=== PATIENT | female | born 1975 | race Two or more races ===

== ENCOUNTER 2017-08-03 18:20 | Inpatient (IN) | payer OTHER ==
--- NOTE | 2017-08-03 18:31 | PDOC ---
Rapid Medical Evaluation Time Seen by Provider: 08/03/17 18:30 Medical Evaluation: Allergies Allergy/AdvReac Type Severity Reaction Status Date / Time No Known Allergies Allergy Verified 11/16/13 08:59 08/03/17 18:30 I have performed a brief in-person evaluation of this patient. The patient presents with a chief complaint of: thrombocytopenia Pertinent physical exam findings: NAD. No rashes. I have ordered the following: labs, urine, CTH, cxr The patient will proceed to the ED for further evaluation. Discharge Disposition - Diagnosis Thrombocytopenia - Referrals - Patient Instructions - Post Discharge Activity
[2017-08-03 19:15] LABS: BASO % 0.7 % (0-2.0); EOS % 2.5 % (0-4.5); HEMATOCRIT 29.7 % (32.4-45.2); HEMOGLOBIN 9.1 GM/dL (10.7-15.3); LYMPH % 34.9 % (8-40); MCH 20.4 pg (25.7-33.7); MCHC 30.6 g/dl (32.0-36.0); MEAN CELL VOLUME 66.7 fl (80-96); MONO % 7.1 % (3.8-10.2); NEUT % 54.8 % (42.8-82.8); RBC 4.45 M/mm3 (3.60-5.2); RDW 18.9 % (11.6-15.6)
[2017-08-03 19:27] LABS: ADD RBC MORPHOLOGY YES
[2017-08-03 19:33] LABS: INR 0.93 (0.82-1.09); PROTHROMBIN TIME (PATIENT) 10.5 SEC (9.7-13.0)
[2017-08-03 19:46] LABS: HCG,QUALITATIVE URINE NEGATIVE
[2017-08-03 19:51] LABS: ANISOCYTOSIS 1+; MEAN PLT VOLUME 11.1 fl (7.5-11.1); OVALOCYTE FEW; PLATELET COUNT 41 K/MM3 (134-434); PLATELET ESTIMATE DECREASED; TARGET CELLS 1+; TEAR DROP CELLS FEW
[2017-08-03 19:52] LABS: URINE APPEARANCE CLEAR; URINE BILIRUBIN NEGATIVE (<2.0 mg/dL); URINE COLOR LTYELLOW; URINE GLUCOSE (UA) NEGATIVE (NEGATIVE); URINE KETONE NEGATIVE (NEGATIVE); URINE LEUK ESTERASE TRACE (NEGATIVE); URINE NITRITE NEGATIVE (NEGATIVE); URINE PROTEIN NEGATIVE (NEGATIVE); URINE UROBILINOGEN NEGATIVE mg/dL (0.2-1.0)
[2017-08-03 19:54] LABS: EPI CELLS RARE /HPF (FEW); URINE BACTERIA RARE /hpf (NONE SEEN); URINE MUCUS RARE
[2017-08-03 20:06] LABS: ALBUMIN 3.5 g/dl (3.4-5.0); ANION GAP 6 (8-16); CALCIUM 8.4 mg/dL (8.5-10.1); CHLORIDE 113 mmol/L (98-107); CO2 25 mmol/L (21-32); CREATININE 0.9 mg/dL (0.55-1.02); GLUCOSE,RANDOM 110 mg/dL (74-106); POTASSIUM 4.1 mmol/L (3.5-5.1); SODIUM 144 mmol/L (136-145); TOT PROT 7.6 g/dl (6.4-8.2)
--- NOTE | 2017-08-03 20:07 | PDOC ---
History of Present Illness - General History Source: Patient Exam Limitations: No Limitations - History of Present Illness Initial Comments: 08/03/17 21:31 The patient is a 41 year old female with past medical history of anemia, referred by PCP to the emergency department s/p abnormal platelet levels. The patient reports going to Dr. River for an annual physical, where she had blood work done that showed her platelet level was 41. The PCP states he was concerned secondary to the patient being an anemic. The patient reports for the past 6 months shes been experiencing abnormal period cycle w/ heavy vaginal bleeding. The PCP did workup w/ results showing 2 cysts. The patient reports following up with Dr. Frazier CLAIM ANALYST, who did a biopsy of the cyst, awaiting results. The patient states a chronic history of cough for the past couple of months, reports going to the several time, who prescribed prednisone, with mild relief. The patient reports going to the to the 7 days ago with ear pain, states she was prescribed amoxicillin.The patient reports associated concerns of generalized fatigue, bilateral ankle swelling, and back pain. The patient reports a similar incident with her son, who recently had blood work done w/ low platelet result and later dx w/ lupus. Denies fever, chills or headache. Denies chest pain or sob. Denies abdominal pain or back pain. Denies nausea or vomiting. Denies diarrhea or constipation. Denies dysuria, hematuria, frequency or urgency to urinate. Denies numbness, tingling or loss of sensation. Allergies: NKDA Social history: None reported Surgical history: None reported PCP: Tash Gonzalez MD CLAIM ANALYST: Dr. Roseann Frazier MD <Stacy Aburto - Last Filed: 08/03/17 21:31> - General History Source: Patient Exam Limitations: No Limitations <Areli Singh - Last Filed: 08/04/17 20:50> - General Chief Complaint: Revisit, Lab Variance Stated Complaint: PCP SENT Time Seen by Provider: 08/03/17 18:30 Past History <Stacy Aburto - Last Filed: 08/03/17 21:31> - Past Medical History Anemia: Yes COPD: No - Immunization History Immunization Up to Date: Yes - Suicide/Smoking/Psychosocial Hx Smoking History: Never smoked Hx Alcohol Use: No Drug/Substance Use Hx: No Substance Use Type: None <Areli Singh - Last Filed: 08/04/17 20:50> - Past Medical History Allergies/Adverse Reactions: Allergies Allergy/AdvReac Type Severity Reaction Status Date / Time No Known Allergies Allergy Verified 08/03/17 18:33 Home Medications: Ambulatory Orders Amoxicillin - [Amoxicillin 875mg Tablet -] 875 mg PO BID 08/03/17 Metformin HCl [Glucophage] 500 mg PO DAILY 08/03/17 Review of Systems - Review of Systems Able to Perform ROS?: Yes Comments:: 08/03/17 21:31 General: No fevers or chills, no weakness, no weight loss HEENT: No change in vision. No sore throat,. No ear pain CardioVascular: No chest pain or shortness of breath Respiratory:No cough, or wheezing. Gastrointestinal: no nausea, vomiting, diarrhea or constipation, No rectal bleeding Genitourinary: No dysuria, hematuria, or frequency Musculoskeletal: No joint or muscle pain or swelling Neurologic: No headache, vertigo, dizziness or loss of consciousness Psychiatric: nor depression Skin: No rashes or easy bruising Endocrine: no increased thirst or abnormal weight change Allergic: no skin or latex allergy All other systems reviewed and normal <Stacy Aburto - Last Filed: 08/03/17 21:31> *Physical Exam - Vital Signs Last Vital Signs Temp Pulse Resp BP Pulse Ox 98.2 F 80 20 133/84 100 08/03/17 18:33 08/03/17 21:03 08/03/17 21:03 08/03/17 21:03 08/03/17 21:03 - Physical Exam Comments: 08/03/17 21:32 GENERAL: The patient is in no acute distress. HEAD: Normal with no signs of trauma. EYES: PERRLA, EOMI, sclera anicteric, conjunctiva clear. ENT: Ears normal, nares patent, oropharynx clear without exudates. Moist mucous membranes. NECK: Normal range of motion, supple without lymphadenopathy, JVD, or masses. LUNGS: Breath sounds equal, clear to auscultation bilaterally. No wheezes, and no crackles. HEART:Regular rate and rhythm, normal S1 and S2 without murmur, rub or gallop. ABDOMEN: Soft, nontender, normoactive bowel sounds. No guarding, no rebound. No masses palpable. EXTREMITIES: Normal range of motion, no edema. No clubbing or cyanosis. No erythema, or tenderness. NEUROLOGICAL: Cranial nerves II through XII grossly intact. Normal speech. No focal neurological deficits. MUSCULOSKELETAL: Back non-tender to palpation, no CVA tenderness SKIN: Warm, Dry, normal turgor, no rashes or lesions noted. <Stacy Aburto - Last Filed: 08/03/17 21:31> - Vital Signs Last Vital Signs Temp Pulse Resp BP Pulse Ox 98.2 F 86 16 122/86 100 08/03/17 18:33 08/03/17 18:33 08/03/17 18:33 08/03/17 18:33 08/03/17 18:33 <Areli Singh - Last Filed: 08/04/17 20:50> ED Treatment Course - LABORATORY CBC & Chemistry Diagram: 08/03/17 18:59 08/03/17 18:59 - ADDITIONAL ORDERS Additional order review: Laboratory Results 08/03/17 08/03/17 08/03/17 19:08 18:59 18:59 PT with INR 10.50 INR 0.93 Sodium 144 Potassium 4.1 Chloride 113 H Carbon Dioxide 25 Anion Gap 6 L BUN 21 H Creatinine 0.9 Creat Clearance w eGFR > 60 Random Glucose 110 H Calcium 8.4 L Total Bilirubin 0.1 L AST 20 ALT 54 Alkaline Phosphatase 68 Total Protein 7.6 Albumin 3.5 Urine Color Ltyellow Urine Appearance Clear Urine pH 5.0 Ur Specific [place] 1.020 Urine Protein Negative Urine Glucose (UA) Negative Urine Ketones Negative Urine Blood 2+ H Urine Nitrite Negative Urine Bilirubin Negative Urine Urobilinogen Negative Ur Leukocyte Esterase Trace Urine WBC (Auto) 4 Urine RBC (Auto) 15 Ur Epithelial Cells Rare Urine Bacteria Rare Urine Mucus Rare Urine HCG, Qual Negative 08/03/17 18:59 RBC 4.45 MCV 66.7 L MCHC 30.6 L RDW 18.9 H MPV 11.1 Neutrophils % 54.8 Lymphocytes % 34.9 Monocytes % 7.1 Eosinophils % 2.5 Basophils % 0.7 <Stacy Aburto - Last Filed: 08/03/17 21:31> - LABORATORY CBC & Chemistry Diagram: 08/04/17 06:30 08/04/17 06:30 - ADDITIONAL ORDERS Additional order review: Laboratory Results 08/03/17 08/03/17 19:08 18:59 PT with INR 10.50 INR 0.93 Urine Color Ltyellow Urine Appearance Clear Urine pH 5.0 Ur Specific [place] 1.020 Urine Protein Negative Urine Glucose (UA) Negative Urine Ketones Negative Urine Blood 2+ H Urine Nitrite Negative Urine Bilirubin Negative Urine Urobilinogen Negative Ur Leukocyte Esterase Trace Urine WBC (Auto) 4 Urine RBC (Auto) 15 Ur Epithelial Cells Rare Urine Bacteria Rare Urine Mucus Rare Urine HCG, Qual Negative 08/03/17 18:59 RBC 4.45 MCV 66.7 L MCHC 30.6 L RDW 18.9 H MPV 11.1 Neutrophils % 54.8 Lymphocytes % 34.9 Monocytes % 7.1 Eosinophils % 2.5 Basophils % 0.7 <Areli Singh - Last Filed: 08/04/17 20:50> Medical Decision Making - Medical Decision Making 08/03/17 20:47 Ms Madden is a 41 yo F who presents to the ER after being called by her PMD Pt was sent to the ER to evaluate thrombocytopenia Pt s/p annual physical, blood tests drawn and reveal thrombocytopenia - platelets Pt notes no spontaneous bleeding, does not that she wakes up in the morning with bruising She has had a headache She does feel weak 08/03/17 21:24 Laboratory Tests 08/03/17 08/03/17 08/03/17 18:59 18:59 18:59 WBC 8.0 Hgb 9.1 L Hct 29.7 L Plt Count 41 L INR 0.93 Sodium 144 Potassium 4.1 Chloride 113 H Carbon Dioxide 25 BUN 21 H Creatinine 0.9 Random Glucose 110 H Urine Blood Ur Leukocyte Esterase Urine WBC (Auto) Urine RBC (Auto) Urine HCG, Qual 08/03/17 19:08 WBC Hgb Hct Plt Count INR Sodium Potassium Chloride Carbon Dioxide BUN Creatinine Random Glucose Urine Blood 2+ H Ur Leukocyte Esterase Trace Urine WBC (Auto) 4 Urine RBC (Auto) 15 Urine HCG, Qual Negative My plan is for discharge Case reviewed with Dr. River He states he would like this patient admitted Case reviewed with Dr Varela Case reviewed with DEREJE Ibarra Will place on observation Clinical impression: thrombocytopenia, initial presentation 08/03/17 21:25 08/04/17 20:46 08/04/17 20:50 <Areli Singh - Last Filed: 08/04/17 20:50> *DC/Admit/Observation/Transfer - Attestations Scribe Attestion: 08/03/17 21:32 Documentation prepared by Stacy Aburto, acting as medical aides teacher for Areli Singh MD. <Stacy Aburto - Last Filed: 08/03/17 21:31> - Discharge Dispostion Decision to Admit order: Yes <Areli Singh - Last Filed: 08/04/17 20:50> Diagnosis at time of Disposition: Thrombocytopenia - Discharge Dispostion Condition at time of disposition: Stable
[2017-08-03 20:31] LABS: ALK PHOS 68 U/L (45-117); BILIRUBIN,TOTAL 0.1 mg/dL (0.2-1.0); BLOOD UREA NITROGEN 21 mg/dL (7-18); SGOT/AST 20 U/L (15-37); SGPT/ALT 54 U/L (12-78)
--- NOTE | 2017-08-03 22:16 | HP ---
CHIEF COMPLAINT: sent by PCP for thrombocytopenia PCP: Perico HISTORY OF PRESENT ILLNESS: This is a 41 year old female with a past medical history of PCOS who presented to the ED with thrombocytopenia. She was sent by her PCP for a platelet count in 30s. She recently went to him becuase she wasn't feeling well (URI/cough/ allergy symptoms) after being treated by urgent care 3 weeks ago for the same. She was started on prednisone and antibiotics by urgent care but reports they didn't help. She then went to her PCP for follow up. He started her on amoxicillin and repeated lab work as her platelet count was low on her annual physical in May. He referred her to the ED when her platelet count was noted low. 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 She had a uterine biopsy but has not received the results yet. She was found to have ovarian cysts and started on metformin. She also reports headaches recently. Of note, she reports her son was recently diagnosed with lupus after being found to have low platelet count on routine labs. ER course was notable for: (1) H/H 9.1/29.7 (2) Plt 41 (3) CT head unremarkable Recent Travel: pt denies PAST MEDICAL HISTORY: polycystic ovarian syndrome, heavy menstrual bleeding x 6 months PAST SURGICAL HISTORY: gastric sleeve 12/2012 Social History: Smoking: pt denies Alcohol: occ Drugs: pt denies Family History: mother , [place] age 74, h/o DM father CVA, age 44, h/o HTN son with lupus siblings with DM/HTN Allergies No Known Allergies Allergy (Verified 08/03/17 18:33) HOME MEDICATIONS: 3 Medication Instructions Recorded Amoxicillin - [Amoxicillin 875mg 875 mg PO BID 08/03/17 Tablet -] Metformin HCl [Glucophage] 500 mg PO DAILY 08/03/17 REVIEW OF SYSTEMS CONSTITUTIONAL: Present: generalized weakness, malaise, Absent: fever, chills, diaphoresis, loss of appetite, weight change HEENT: Absent: rhinorrhea, nasal congestion, throat pain, throat swelling, difficulty swallowing, mouth swelling, ear pain, eye pain, visual changes CARDIOVASCULAR: Present: occasional peripheral edema Absent: chest pain, syncope, palpitations, irregular heart rate, lightheadedness RESPIRATORY: Present: cough, shortness of breath Absent: dyspnea with exertion, orthopnea, wheezing, stridor, hemoptysis GASTROINTESTINAL: Absent: abdominal pain, abdominal distension, nausea, vomiting, diarrhea, constipation, melena, hematochezia GENITOURINARY: Present: heavy menstrual bleeding Absent: dysuria, frequency, urgency, hesitancy, hematuria, flank pain, genital pain MUSCULOSKELETAL: Absent: myalgia, arthralgia, joint swelling, back pain, neck pain SKIN: Absent: rash, itching, pallor HEMATOLOGIC/IMMUNOLOGIC: Present: easy bruising Absent: easy bleeding, lymphadenopathy, frequent infections ENDOCRINE: Absent: unexplained weight gain, unexplained weight loss, heat intolerance, cold intolerance NEUROLOGIC: Absent: headache, focal weakness or paresthesias, dizziness, unsteady gait, seizure, mental status changes, bladder or bowel incontinence PSYCHIATRIC: Absent: anxiety, depression, suicidal or homicidal ideation, hallucinations. PHYSICAL EXAMINATION Vital Signs - 24 hr 3 08/03/17 08/03/17 08/03/17 18:33 20:53 21:03 Temperature 98.2 F Pulse Rate 86 Pulse Rate [ 80 Left Radial] Respiratory 16 20 Rate Blood Pressure 122/86 Blood Pressure 133/84 [Left Arm] O2 Sat by Pulse 100 98 100 Oximetry (%) GENERAL: Awake, alert, and fully oriented, in no acute distress. HEAD: Normal with no signs of trauma. EYES: Pupils equal, round and reactive to light, extraocular movements intact, sclera anicteric, conjunctiva clear. No lid lag. EARS, NOSE, THROAT: Ears normal, nares patent, oropharynx clear without exudates. Moist mucous membranes. NECK: Normal range of motion, supple without lymphadenopathy, JVD, or masses. LUNGS: Breath sounds equal, clear to auscultation bilaterally. No wheezes, and no crackles. No accessory muscle use. HEART: Regular rate and rhythm, normal S1 and S2 without murmur, rub or gallop. ABDOMEN: Soft, nontender, not distended, normoactive bowel sounds, no guarding, no rebound, no masses. No hepatomegaly or splenomegaly. MUSCULOSKELETAL: Normal range of motion at all joints. No bony deformities or tenderness. No CVA tenderness. UPPER EXTREMITIES: 2+ pulses, warm, well-perfused. No cyanosis. No clubbing. No peripheral edema. LOWER EXTREMITIES: 2+ pulses, warm, well-perfused. No calf tenderness. No peripheral edema. NEUROLOGICAL: Cranial nerves II-XII intact. Normal speech. Normal gait. PSYCHIATRIC: Cooperative. Good eye contact. Appropriate mood and affect. SKIN: Warm, dry, normal turgor, no rashes or lesions noted, normal capillary refill. Laboratory Results - last 24 hr 3 08/03/17 08/03/17 08/03/17 18:59 18:59 18:59 WBC 8.0 RBC 4.45 Hgb 9.1 L Hct 29.7 L MCV 66.7 L MCH 20.4 L MCHC 30.6 L RDW 18.9 H Plt Count 41 L MPV 11.1 Absolute Neuts (auto) 4.4 Neutrophils % 54.8 Lymphocytes % 34.9 Monocytes % 7.1 Eosinophils % 2.5 Basophils % 0.7 Nucleated RBC % 0 Hypochromia 3+ Platelet Estimate Decreased Platelet Comment No clumping noted Polychromasia 1+ Anisocytosis 1+ Microcytosis 1+ Target Cells 1+ Tear Drop Cells Few Ovalocytes Few PT with INR 10.50 INR 0.93 Sodium 144 Potassium 4.1 Chloride 113 H Carbon Dioxide 25 Anion Gap 6 L BUN 21 H Creatinine 0.9 Creat Clearance w eGFR > 60 Random Glucose 110 H Calcium 8.4 L Total Bilirubin 0.1 L AST 20 ALT 54 Alkaline Phosphatase 68 Total Protein 7.6 Albumin 3.5 Urine Color Urine Appearance Urine pH Ur Specific [place] Urine Protein Urine Glucose (UA) Urine Ketones Urine Blood Urine Nitrite Urine Bilirubin Urine Urobilinogen Ur Leukocyte Esterase Urine WBC (Auto) Urine RBC (Auto) Ur Epithelial Cells Urine Bacteria Urine Mucus Urine HCG, Qual 3 Urine Color Ltyellow 08/03/17 19:08 Urine Appearance Clear 08/03/17 19:08 Urine pH 5.0 (5.0-8.0) 08/03/17 19:08 Ur Specific [place] 1.020 (1.001-1.035) 08/03/17 19:08 Urine Protein Negative (NEGATIVE) 08/03/17 19:08 Urine Glucose (UA) Negative (NEGATIVE) 08/03/17 19:08 Urine Ketones Negative (NEGATIVE) 08/03/17 19:08 Urine Blood 2+ (NEGATIVE) H 08/03/17 19:08 Urine Nitrite Negative (NEGATIVE) 08/03/17 19:08 Urine Bilirubin Negative (<2.0 mg/dL) 08/03/17 19:08 Ur Leukocyte Esterase Trace (NEGATIVE) 08/03/17 19:08 Urine WBC (Auto) 4 08/03/17 19:08 Urine RBC (Auto) 15 08/03/17 19:08 Ur Epithelial Cells Rare /HPF (FEW) 08/03/17 19:08 Urine Bacteria Rare /hpf (NONE SEEN) 08/03/17 19:08 Urine Mucus Rare 08/03/17 19:08 Urine HCG, Qual Negative 08/03/17 19:[address] Impression: No CT evidence of acute intracranial pathology. There has been no definite interval change in comparison to a prior CT exam of 01/30/2005. Reported By: Nathan Tyson MD 08/03/172022 Chest PA/Lat Impression: No acute chest pathology. No comparison studies. Reported By: Ted Chávez MD 08/03/172106 ASSESSMENT/PLAN: 41yF with PMH PCOS, heavy menstrual bleeding presented to the ED with thrombocytopenia. Thrombocytopenia - given son with thrombocytopenia and recent dx of lupus will initiate lupus workup: VILMA, antiphospholipid panel ordered - hematology consult - monitor for bleed and transfuse if any bleeding anemia - likely CASEY due to heavy menses - Iron/TIBC ordered - folate and B12 ordered but doubtful will be abnormal DVT PPX - heparin deferred due to platelet count and expected LOS < 48h FEN - tolerating po - bmp in am - Regular diet as tolerated. Dispo: pt currently requires further observation. Visit type - Emergency Visit Emergency Visit: Yes ED Registration Date: 08/03/17 Care time: The patient presented to the Emergency Department on the above date and was hospitalized for further evaluation of their emergent condition. - New Patient This patient is new to me today: Yes Date on this admission: 08/03/17 - Critical Care Critical Care patient: No Hospitalist Screening - Colonoscopy Questionnaire Colonoscopy Questionnaire: Colonoscopy Questionnaire - Patient: 50 - 75 years old and never had a screening colonoscopy: No History of colon or rectal polyps, or CA: No History of IBD, Crohn's disease or UC: No History of abdominal radiation therapy as a child: No - Relative: 1 with colon or rectal CA, or polyps at age 60 or younger: No Colon or rectal CA diagnosed at age 45 or younger: No Multiple relatives with colon or rectal CA: No - Outcome: Screening Result: Negative Screen
[2017-08-04 00:06] VITALS: BMI 38.5
[2017-08-04 08:28] LABS: BASO % 0.4 % (0-2.0); EOS % 2.9 % (0-4.5); HEMATOCRIT 29.5 % (32.4-45.2); HEMOGLOBIN 9.1 GM/dL (10.7-15.3); LYMPH % 31.3 % (8-40); MCH 20.3 pg (25.7-33.7); MCHC 30.7 g/dl (32.0-36.0); MEAN CELL VOLUME 66.2 fl (80-96); MEAN PLT VOLUME 11.1 fl (7.5-11.1); MONO % 7.6 % (3.8-10.2); NEUT % 57.8 % (42.8-82.8); RBC 4.46 M/mm3 (3.60-5.2); RDW 18.9 % (11.6-15.6); WHITE BLOOD COUNT 6.8 K/mm3 (4.0-10.0)
[2017-08-04 08:45] LABS: BLOOD UREA NITROGEN 16 mg/dL (7-18); CHLORIDE 112 mmol/L (98-107); GLUCOSE,RANDOM 78 mg/dL (74-106); POTASSIUM 3.7 mmol/L (3.5-5.1); SODIUM 143 mmol/L (136-145)
[2017-08-04 08:46] LABS: PLATELET COUNT 28 K/MM3 (134-434)
[2017-08-04 09:16] LABS: ANION GAP 6 (8-16); CALCIUM 8.2 mg/dL (8.5-10.1); CO2 25 mmol/L (21-32); CREATININE 0.7 mg/dL (0.55-1.02); PHOSPHOROUS 3.2 mg/dL (2.5-4.9)
[2017-08-04] MEDS ORDERED: ACETAMINOPHEN 325 MG TABLET (FP) ONE (10:27)
[2017-08-04] MEDS: ACETAMINOPHEN 325 MG TABLET (FP) PO PRN (10:29)
--- NOTE | 2017-08-04 11:04 | PN ---
Progress Note, Physician Chief Complaint: weakness/wheezes notes reviewed C/O HEADACHE - Current Medication List Current Medications: Active Medications Acetaminophen (Tylenol -) 650 mg PO Q6H PRN PRN Reason: PAIN SCALE 7-10 Last Admin: 08/04/17 10:29 Dose: 650 mg - Objective Vital Signs: Vital Signs Temperature 98.3 F 08/04/17 06:27 Pulse Rate 76 08/04/17 06:27 Respiratory Rate 20 08/04/17 06:27 Blood Pressure 141/95 08/04/17 06:27 O2 Sat by Pulse Oximetry (%) 100 08/03/17 23:00 Constitutional: Yes: Mild Distress Eyes: Yes: WNL HENT: Yes: Nasal Congestion Neck: Yes: WNL Cardiovascular: Yes: WNL Respiratory: Yes: WNL Gastrointestinal: Yes: WNL Genitourinary: Yes: WNL Musculoskeletal: Yes: Muscle Weakness Extremities: Yes: WNL Edema: No Peripheral Pulses WNL: Yes Integumentary: Yes: WNL Wound/Incision: Yes: Clean/Dry Neurological: Yes: WNL ...Motor Strength: WNL Psychiatric: Yes: WNL Labs: CBC, BMP 08/04/17 06:30 08/04/17 06:30 INR, PTT INR 0.93 (0.82-1.09) 08/03/17 18:59 Problem List - Problems (1) Weakness Code(s): R53.1 - WEAKNESS (2) Thrombocytopenia Code(s): D69.6 - THROMBOCYTOPENIA, UNSPECIFIED (3) Pharyngitis Code(s): J02.9 - ACUTE PHARYNGITIS, UNSPECIFIED Assessment/Plan THROMBOCYTOPENIA IS WORSE TODAY HEME/ONC WORKUP IN PROGRESS DUO - SKIP AND NASAL SPRAYS FOR RHINITIS/SINUSITIS OOB TO CHAIR NO HEPARIN SQ BECAUSE PLATLETS ARE LOW
[2017-08-04] MEDS: LORATADINE 10 MG TABLET PO SCH (12:05)
[2017-08-04] MEDS: SODIUM CHLORIDE NASAL SPRAY 44 ML BOTTLE NS PRN (12:05)
[2017-08-04] MEDS: FLUTICASONE PROP 0.05% 16 GM NASAL SPRAY NS SCH ×2 (12:06→21:51)
[2017-08-04] MEDS ORDERED: PT OWN MED DRAWER 7, Y5N ONE ×2 (13:23→21:47)
[2017-08-04 16:15] LABS: URIC ACID 3.2 mg/dL (2.6-7.2)
--- NOTE | 2017-08-04 17:07 | CONSULT ---
Consult Consult Specialty:: Hematology - History of Present Illness History of Present Illness: 11 year old female with a past medical history of PCOS who presented to the ED with thrombocytopenia. She was sent by her PCP for a platelet count in 30s. She recently went to him becuase she wasn't feeling well (URI/cough/allergy symptoms ) after being treated by urgent care 3 weeks ago for the same. She was started on prednisone and antibiotics by urgent care but reports they didn't help. She then went to her PCP for follow up. He started her on amoxicillin and repeated lab work as her platelet count was low on her annual physical in May. He referred her to the ED when her platelet count was noted low. Pt also reports she is currently undergoing workup with her P[employer] for heavy menses x 6 months. She had a uterine biopsy but has not received the results yet. She was found to have ovarian cysts and started on metformin. She also reports headaches recently. Of note, she reports her son was recently diagnosed with lupus after being found to have low platelet count on routine labs. - History Source History Provided By: Patient, Medical Record - Past Medical History ...LMP: 07/19/17 ...: No - Alcohol/Substance Use Hx Alcohol Use: Yes (occasional) - Smoking History Smoking history: Never smoked Have you smoked in the past 12 months: No Home Medications - Allergies Allergies/Adverse Reactions: Allergies Allergy/AdvReac Type Severity Reaction Status Date / Time No Known Allergies Allergy Verified 08/03/17 18:33 - Home Medications Home Medications: Ambulatory Orders Amoxicillin - [Amoxicillin 875mg Tablet -] 875 mg PO BID 08/03/17 Metformin HCl [Glucophage] 500 mg PO DAILY 08/03/17 Physical Exam Vital Signs: Vital Signs Temperature 98.9 F 08/04/17 15:43 Pulse Rate 71 08/04/17 15:43 Respiratory Rate 18 08/04/17 15:43 Blood Pressure 119/74 08/04/17 15:43 O2 Sat by Pulse Oximetry (%) 100 08/03/17 23:00 Constitutional: Yes: Anxious Eyes: Yes: Conjunctiva Clear HENT: Yes: Atraumatic, Normocephalic Neck: Yes: Supple, Trachea Midline Cardiovascular: Yes: Regular Rate and Rhythm Respiratory: Yes: Regular, CTA Bilaterally Gastrointestinal: Yes: Normal Bowel Sounds, Soft Musculoskeletal: Yes: WNL Edema: No Integumentary: Yes: Other (petechiae seen) Neurological: Yes: Alert, Oriented Psychiatric: Yes: Alert, Oriented Labs: CBC, BMP 08/04/17 06:30 08/04/17 06:30 Assessment/Plan Anemia and Thrombocytopenia etiology - different or the same for both the cell line decline pt endorses heavy vaginal bleeding---?cause of anemia-- check routine anemia w/u --Iron studies, TSH, [place],LDH, retic, Hapto Normal B12/folate. Thrombocytopenia: ?meds(recent PCN usage), ?Recovering from recent resp illness as per her---check blood cultures vs idiopathic , order hep serologies. r/o Lupus will also send FLOW/FISH of the peripheral and CT c/a/p to rule out underlying primary hematological disorders/assess spleen/liver. Unlikely pseudo thrombocytopenia, but as pt requested, will repeat Platelets in blue top tube. If any evidence of bleeding-- will transfuse platelets or if <20K. Fall/Bleeding risk.
[2017-08-04] MEDS: ALBUTEROL SO4 2.5/IPRATROPIUM 0.5 INH SOL 3 ML VIAL.NEB. NEB PRN (17:41)
[2017-08-05 06:37] LABS: SERUM IRON SATURATION 6 % (15-55); TOTAL IRON BINDING CAPACITY 396 ug/dL (250-450); UIBC 374 ug/dL (131-425)
[2017-08-05] MEDS ORDERED: PT OWN MED DRAWER 7, Y5N ONE (09:13)
[2017-08-05] MEDS ORDERED: MAGNESIUM HYDROX 2400MG/30ML ORAL SUSPENSION 30 ML CUP PO ONE (09:18)
--- NOTE | 2017-08-05 09:20 | PN ---
Progress Note, Physician Chief Complaint: AWAKE ALERT FEELING BETTER C/O CONSTIPATION - Current Medication List Current Medications: Active Medications Acetaminophen (Tylenol -) 650 mg PO Q6H PRN PRN Reason: PAIN SCALE 7-10 Last Admin: 08/04/17 10:29 Dose: 650 mg Albuterol/Ipratropium (Duoneb -) 1 amp NEB Q6H PRN PRN Reason: SHORTNESS OF BREATH Last Admin: 08/04/17 17:41 Dose: 1 amp Fluticasone Propionate (Flonase -) 1 spray NS BID CHUCHO Last Admin: 08/04/17 21:51 Dose: 1 spray Loratadine (Claritin -) 10 mg PO DAILY CHUCHO Last Admin: 08/04/17 12:05 Dose: 10 mg Magnesium Hydroxide (Milk Of Magnesia -) 30 ml PO ONCE ONE Stop: 08/05/17 09:19 Senna (Senna -) 1 tab PO BID CHUCHO Sodium Chloride ([place] Nasal [place] -) 2 spray NS TID PRN PRN Reason: NASAL CONGESTION Last Admin: 08/04/17 12:05 Dose: 2 spray - Objective Vital Signs: Vital Signs Temperature 98.6 F 08/05/17 06:24 Pulse Rate 87 08/05/17 06:24 Respiratory Rate 18 08/05/17 06:24 Blood Pressure 102/66 08/05/17 06:24 O2 Sat by Pulse Oximetry (%) 98 08/04/17 21:00 Constitutional: Yes: No Distress Eyes: Yes: WNL HENT: Yes: WNL Neck: Yes: WNL Cardiovascular: Yes: WNL Respiratory: Yes: WNL Gastrointestinal: Yes: WNL Genitourinary: Yes: WNL Musculoskeletal: Yes: WNL Extremities: Yes: WNL Edema: No Peripheral Pulses WNL: Yes Integumentary: Yes: WNL Wound/Incision: Yes: Clean/Dry Neurological: Yes: WNL ...Motor Strength: WNL Psychiatric: Yes: WNL Labs: CBC, BMP 08/04/17 06:30 08/04/17 06:30 INR, PTT INR 0.93 (0.82-1.09) 08/03/17 18:59 Problem List - Problems (1) Weakness Code(s): R53.1 - WEAKNESS (2) Thrombocytopenia Code(s): D69.6 - THROMBOCYTOPENIA, UNSPECIFIED (3) Pharyngitis Code(s): J02.9 - ACUTE PHARYNGITIS, UNSPECIFIED Assessment/Plan AWAITING LABS FALL RISKS AND BLEEDING RISKS D/W PATIENT HEME WORKUP IN PROGRESS POSSIBLE DC WHEN CLEARED BY HEME
[2017-08-05] MEDS: FLUTICASONE PROP 0.05% 16 GM NASAL SPRAY NS SCH ×2 (09:30→22:07)
[2017-08-05] MEDS: SENNOSIDES 8.6MG TABLET (FP) PO SCH ×2 (09:30→22:07)
[2017-08-05] MEDS: LORATADINE 10 MG TABLET PO SCH (09:30)
[2017-08-05] MEDS ORDERED: IRON SUCROSE INJECTION 200 MG in SODIUM CHLORIDE 240 ML IVPB ONE (09:46)
--- NOTE | 2017-08-05 10:50 | PN ---
Progress Note (short form) - Note Progress Note: seen and examined not chnaged from yesterday Constitutional: Yes: Anxious Eyes: Yes: Conjunctiva Clear HENT: Yes: Atraumatic, Normocephalic Neck: Yes: Supple, Trachea Midline Cardiovascular: Yes: Regular Rate and Rhythm Respiratory: Yes: Regular, CTA Bilaterally Gastrointestinal: Yes: Normal Bowel Sounds, Soft Musculoskeletal: Yes: WNL Edema: No Integumentary: Yes: Other (petechiae seen) Neurological: Yes: Alert, Oriented Psychiatric: Yes: Alert, Oriented Temp Pulse Resp BP Pulse Ox 98.6 F 87 18 102/66 98 08/05/17 06:24 08/05/17 06:24 08/05/17 06:24 08/05/17 06:24 08/04/17 21:00 CBC, BMP 08/04/17 06:30 08/04/17 06:30 Current Medications Generic Name Dose Route Start Last Admin Trade Name Freq PRN Reason Stop Dose Admin Acetaminophen 650 mg 08/04/17 10:27 08/04/17 10:29 Tylenol - PO 650 mg Q6H PRN Administration PAIN SCALE 7-10 Albuterol/Ipratropium 1 amp 08/04/17 11:01 08/04/17 17:41 Duoneb - NEB 1 amp Q6H PRN Administration SHORTNESS OF BREATH Fluticasone Propionate 1 spray 08/04/17 11:15 08/05/17 09:30 Flonase - NS 1 spray BID CHUCHO Administration Loratadine 10 mg 08/04/17 11:15 08/05/17 09:30 Claritin - PO 10 mg DAILY CHUCHO Administration Senna 1 tab 08/05/17 10:00 08/05/17 09:30 Senna - PO 1 tab BID CHUCHO Administration Sodium Chloride 2 spray 08/04/17 11:01 08/04/17 12:05 [place] Nasal [place] - NS 2 spray TID PRN Administration NASAL CONGESTION await w/u CT scan pending give venofer ( low iron sat). Platelets remain <50K for safe d.c and etiology not known yet. pt aware
[2017-08-05] MEDS: ACETAMINOPHEN 325 MG TABLET (FP) PO PRN (18:06)
[2017-08-05] MEDS: ALBUTEROL SO4 2.5/IPRATROPIUM 0.5 INH SOL 3 ML VIAL.NEB. NEB PRN (18:17)
[2017-08-06] MEDS: ALBUTEROL SO4 2.5/IPRATROPIUM 0.5 INH SOL 3 ML VIAL.NEB. NEB PRN (07:31)
[2017-08-06 08:10] LABS: HEMATOCRIT 29.5 % (32.4-45.2); HEMOGLOBIN 9.1 GM/dL (10.7-15.3); MCH 20.4 pg (25.7-33.7); MCHC 30.7 g/dl (32.0-36.0); MEAN CELL VOLUME 66.3 fl (80-96); MEAN PLT VOLUME 10.8 fl (7.5-11.1); RBC 4.45 M/mm3 (3.60-5.2); RDW 19.4 % (11.6-15.6); WHITE BLOOD COUNT 6.5 K/mm3 (4.0-10.0)
[2017-08-06] MEDS ORDERED: PT OWN MED DRAWER 7, Y5N ONE ×2 (09:24→22:48)
[2017-08-06] MEDS: FLUTICASONE PROP 0.05% 16 GM NASAL SPRAY NS SCH ×2 (09:26→23:01)
[2017-08-06] MEDS: SENNOSIDES 8.6MG TABLET (FP) PO SCH ×2 (09:26→23:00)
[2017-08-06] MEDS: LORATADINE 10 MG TABLET PO SCH (09:26)
[2017-08-06 10:02] LABS: PLATELET COUNT 28 K/MM3 (134-434)
--- NOTE | 2017-08-06 11:21 | DS ---
Physical Examination Vital Signs: Vital Signs Temperature 99.2 F 08/06/17 08:30 Pulse Rate 81 08/06/17 08:30 Respiratory Rate 20 08/06/17 08:30 Blood Pressure 113/67 08/06/17 08:30 O2 Sat by Pulse Oximetry (%) 98 08/05/17 21:00 Constitutional: Yes: Calm Cardiovascular: Yes: Regular Rate and Rhythm, S1, S2 Respiratory: Yes: CTA Bilaterally Gastrointestinal: Yes: Normal Bowel Sounds, Soft Edema: No Neurological: Yes: Alert, Oriented Labs: CBC, BMP 08/06/17 07:30 08/04/17 06:30 Discharge Summary Reason For Visit: THROMBOCYTOPENIA Current Active Problems Thrombocytopenia (Acute) Weakness (Acute) Hospital Course: CHIEF COMPLAINT: sent by PCP for thrombocytopenia PCP: Perico HISTORY OF PRESENT ILLNESS: This is a 41 year old female with a past medical history of PCOS who presented to the ED with thrombocytopenia. She was sent by her PCP for a platelet count in 30s. She recently went to him becuase she wasn't feeling well (URI/cough/ allergy symptoms) after being treated by urgent care 3 weeks ago for the same. She was started on prednisone and antibiotics by urgent care but reports they didn't help. She then went to her PCP for follow up. He started her on amoxicillin and repeated lab work as her platelet count was low on her annual physical in May. He referred her to the ED when her platelet count was noted low. 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 She had a uterine biopsy but has not received the results yet. She was found to have ovarian cysts and started on metformin. She also reports headaches recently. Of note, she reports her son was recently diagnosed with lupus after being found to have low platelet count on routine labs. ER course was notable for: (1) H/H 9.1/29.7 (2) Plt 41 (3) CT head unremarkable patient seen by heme CT scan of chest and abdomen done got iv venofer for low iron saturation Condition: Stable - Instructions Referrals: Tash River MD [Primary Care Provider] - 1 Week Lila Garner MD [Staff Physician] - 2 Weeks Disposition: HOME - Home Medications Comprehensive Discharge Medication List: Ambulatory Orders Amoxicillin - [Amoxicillin 875mg Tablet -] 875 mg PO BID 08/03/17 Metformin HCl [Glucophage] 500 mg PO DAILY 08/03/17
[2017-08-06] MEDS: ACETAMINOPHEN 325 MG TABLET (FP) PO PRN (17:22)
--- NOTE | 2017-08-06 19:11 | PN ---
Progress Note (short form) - Note Progress Note: Patient seen and examined feels well. no complaints Last Vital Signs Temp Pulse Resp BP Pulse Ox 98.2 F 86 18 124/80 98 08/06/17 17:46 08/06/17 17:46 08/06/17 17:46 08/06/17 17:46 08/05/17 21:00 Cor: RSR, No murmurs, No gallops Lungs: Clear to P&A Abd: Soft, Normal bowel sounds, No organomegaly Ext:No significant edema Abnormal Lab Results 08/05/17 08/06/17 08:05 07:30 Hgb 9.1 L Hct 29.5 L MCV 66.3 L MCH 20.4 L MCHC 30.7 L RDW 19.4 H Plt Count 28 L* Hep Bs Antibody, Quant 9.2 L Active Medications Generic Name Dose Route Start Last Admin Trade Name Freq PRN Reason Stop Dose Admin Acetaminophen 650 mg 08/04/17 10:27 08/06/17 17:22 Tylenol - PO 650 mg Q6H PRN Administration PAIN SCALE 7-10 Albuterol/Ipratropium 1 amp 08/04/17 11:01 08/06/17 07:31 Duoneb - NEB 1 amp Q6H PRN Administration SHORTNESS OF BREATH Fluticasone Propionate 1 spray 08/04/17 11:15 08/06/17 09:26 Flonase - NS 1 spray BID CHUCHO Administration Loratadine 10 mg 08/04/17 11:15 08/06/17 09:26 Claritin - PO 10 mg DAILY CHUCHO Administration Senna 1 tab 08/05/17 10:00 08/06/17 09:26 Senna - PO 1 tab BID CHUCHO Administration Sodium Chloride 2 spray 08/04/17 11:01 08/04/17 12:05 [place] Nasal [place] - NS 2 spray TID PRN Administration NASAL CONGESTION A/P 41 y/o patient with Anemia and Thrombocytopenia Iron deficiency anemia--Microcytic + ferritin is 3 . 200mg venofer 08/05. Redose tomorrow Due to menorrhagia from low platelets, fibroids s/p D an C --pathology is pending CT c/a/p-- right adnexal cyst/ fibroid uterus will need PAINTER BARREL follow up Thrombocytopenia: VILMA negative. check HIV/Hep. C. LDH--nl ITP will check flowcytometry Since patient is having menorrhagia --will treat for platelets < 50,000 start dexamethasone 40mg daily x 4days + protonix to f/u flowcytometry
[2017-08-06] MEDS: PANTOPRAZOLE 40 MG TABLET (FP) PO SCH (20:30)
[2017-08-06] MEDS: DEXAMETHASONE 4 MG TABLET (FP) PO SCH (20:59)
[2017-08-07 07:11] LABS: BASO % 0.4 % (0-2.0); EOS % 0.1 % (0-4.5); HEMATOCRIT 31.3 % (32.4-45.2); HEMOGLOBIN 9.6 GM/dL (10.7-15.3); LYMPH % 14.5 % (8-40); MCH 20.4 pg (25.7-33.7); MCHC 30.7 g/dl (32.0-36.0); MEAN CELL VOLUME 66.5 fl (80-96); MEAN PLT VOLUME 8.8 fl (7.5-11.1); MONO % 0.9 % (3.8-10.2); NEUT % 84.1 % (42.8-82.8); RDW 19.1 % (11.6-15.6); WHITE BLOOD COUNT 8.7 K/mm3 (4.0-10.0)
[2017-08-07 07:27] LABS: ALBUMIN 3.5 g/dl (3.4-5.0); BLOOD UREA NITROGEN 14 mg/dL (7-18); CHLORIDE 110 mmol/L (98-107); POTASSIUM 4.2 mmol/L (3.5-5.1); SGOT/AST 16 U/L (15-37); SODIUM 140 mmol/L (136-145)
[2017-08-07 07:30] LABS: ALK PHOS 68 U/L (45-117); ANION GAP 6 (8-16); BILIRUBIN,TOTAL 0.2 mg/dL (0.2-1.0); CALCIUM 9.1 mg/dL (8.5-10.1); CO2 24 mmol/L (21-32); CREATININE 0.8 mg/dL (0.55-1.02); GLUCOSE,RANDOM 151 mg/dL (74-106); PLATELET COUNT 30 K/MM3 (134-434); SGPT/ALT 39 U/L (12-78); TOT PROT 7.8 g/dl (6.4-8.2)
--- NOTE | 2017-08-07 09:11 | PN ---
Progress Note, Physician Chief Complaint: Thrombocytopenia History of Present Illness: NAD sitting in bed seen by Hematology today Plt improved Started on Dexamethasone - Current Medication List Current Medications: Active Medications Acetaminophen (Tylenol -) 650 mg PO Q6H PRN PRN Reason: PAIN SCALE 7-10 Last Admin: 08/06/17 17:22 Dose: 650 mg Albuterol/Ipratropium (Duoneb -) 1 amp NEB Q6H PRN PRN Reason: SHORTNESS OF BREATH Last Admin: 08/06/17 07:31 Dose: 1 amp Dexamethasone (Decadron -) 40 mg PO DAILY@1800 CHUCHO Stop: 08/09/17 18:01 Last Admin: 08/06/17 20:59 Dose: 40 mg Fluticasone Propionate (Flonase -) 1 spray NS BID [facility] Last Admin: 08/06/17 23:01 Dose: 1 spray Iron Sucrose 200 mg/ Sodium (Chloride) 100 mls @ 200 mls/hr IVPB ONCE ONE Stop: 08/07/17 10:29 Loratadine (Claritin -) 10 mg PO DAILY [facility] Last Admin: 08/06/17 09:26 Dose: 10 mg Pantoprazole Sodium (Protonix -) 40 mg PO DAILY [facility] Last Admin: 08/06/17 20:30 Dose: 40 mg Senna (Senna -) 1 tab PO BID [facility] Last Admin: 08/06/17 23:00 Dose: 1 tab Sodium Chloride ([place] Nasal [place] -) 2 spray NS TID PRN PRN Reason: NASAL CONGESTION Last Admin: 08/04/17 12:05 Dose: 2 spray - Objective Vital Signs: Vital Signs Temperature 98.1 F 08/07/17 06:00 Pulse Rate 79 08/07/17 06:00 Respiratory Rate 20 08/07/17 06:00 Blood Pressure 108/73 08/07/17 06:00 O2 Sat by Pulse Oximetry (%) 97 08/06/17 21:00 Constitutional: Yes: Well Nourished, No Distress, Calm Cardiovascular: Yes: Regular Rate and Rhythm Respiratory: Yes: Regular Gastrointestinal: Yes: Normal Bowel Sounds, Soft Neurological: Yes: Alert, Oriented Psychiatric: Yes: Alert, Oriented Labs: CBC, BMP 08/07/17 06:15 08/07/17 06:15 INR, PTT INR 0.93 (0.82-1.09) 08/03/17 18:59 Problem List - Problems (1) Thrombocytopenia Assessment/Plan: -improved -seen by Hematology Started on Dexamethasone 40 mg po daily Code(s): D69.6 - THROMBOCYTOPENIA, UNSPECIFIED (2) Anemia Assessment/Plan: -chronic -Venofer -hemotology on board -Stool OB -monitor trend Code(s): D64.9 - ANEMIA, UNSPECIFIED Assessment/Plan see problem list self ambulatory Pharmacological dvt prophylaxis contraindicated at this time
[2017-08-07] MEDS: SENNOSIDES 8.6MG TABLET (FP) PO SCH ×2 (09:26→23:18)
[2017-08-07] MEDS: PANTOPRAZOLE 40 MG TABLET (FP) PO SCH (09:26)
[2017-08-07] MEDS: LORATADINE 10 MG TABLET PO SCH (09:26)
[2017-08-07] MEDS: FLUTICASONE PROP 0.05% 16 GM NASAL SPRAY NS SCH ×2 (09:27→23:19)
[2017-08-07] MEDS: SODIUM CHLORIDE NASAL SPRAY 44 ML BOTTLE NS PRN (09:27)
[2017-08-07 09:34] LABS: ANISOCYTOSIS 1+; MACROCYTOSIS 1+; PLATELET ESTIMATE DECREASED
[2017-08-07] MEDS ORDERED: IRON SUCROSE INJECTION 200 MG in SODIUM CHLORIDE 90 ML IVPB ONE (10:00)
--- NOTE | 2017-08-07 12:48 | PATH ---
Surgical Pathology Report Patient Name: ELIDA FOREMAN Med. Rec. #: [id number] /Age/Gender: 1975 (Age: 41) / F Account: [id number] Location: [facility] MED/SURG Taken: 08/05/2017 Received: 08/06/2017 Reported: 08/07/2017 Physicians: Lila Garner M.D. Specimen(s) Received PERIPHERAL BLOOD 2 GREEN 2 LAVENDER Clinical History Anemia, thrombocytopenia Final Diagnosis COMPREHENSIVE FLOW PANEL performed and interpreted at [place], [place] ([id number]) shows the following: INTERPRETATION: NO ATYPICAL FLOW CYTOMETRIC FINDINGS SEEN ADDITIONAL TESTS: FISH See [facility] report ([id number]) for additional details. Electronically Signed Myles Romero M.D. Addendum Reported: 08/09/2017 Addendum Diagnosis MYELODYSPLASIA FISH PANEL performed and interpreted at [place], [place] ([id number]) shows the following: INTERPRETATION: No evidence of deletion 5q or monosomy 5 is present. No evidence of deletion 7q or monosomy 7 is present. No evidence of trisomy 8 (+8) is present. No evidence of deletion 13q14 is present. No evidence of rearrangement of 11q23. No evidence of a deletion of the p53 (17p13) locus. No evidence of deletion 20q12 is present COMMENTS: Seven multiplex probe stain procedures were performed. See [facility] report ([id number]) for additional details. Myles Romero M.D.
[2017-08-07] MEDS: DEXAMETHASONE 4 MG TABLET (FP) PO SCH (18:10)
--- NOTE | 2017-08-07 18:15 | PN ---
Progress Note (short form) - Note Progress Note: seen and examined started on steroids seen and examined. feels better Constitutional: Yes: Anxious Eyes: Yes: Conjunctiva Clear HENT: Yes: Atraumatic, Normocephalic Neck: Yes: Supple, Trachea Midline Cardiovascular: Yes: Regular Rate and Rhythm Respiratory: Yes: Regular, CTA Bilaterally Gastrointestinal: Yes: Normal Bowel Sounds, Soft Musculoskeletal: Yes: WNL Edema: No Integumentary: Yes: Other (petechiae seen) Neurological: Yes: Alert, Oriented Psychiatric: Yes: Alert, Oriented Temp Pulse Resp BP Pulse Ox 98.6 F 87 18 102/66 98 08/05/17 06:24 08/05/17 06:24 08/05/17 06:24 08/05/17 06:24 08/04/17 21:00 CBC, BMP 08/04/17 06:30 08/04/17 06:30 Current Medications Generic Name Dose Route Start Last Admin Trade Name Freq PRN Reason Stop Dose Admin Acetaminophen 650 mg 08/04/17 10:27 08/04/17 10:29 Tylenol - PO 650 mg Q6H PRN Administration PAIN SCALE 7-10 Albuterol/Ipratropium 1 amp 08/04/17 11:01 08/04/17 17:41 Duoneb - NEB 1 amp Q6H PRN Administration SHORTNESS OF BREATH Fluticasone Propionate 1 spray 08/04/17 11:15 08/05/17 09:30 Flonase - NS 1 spray BID CHUCHO Administration Loratadine 10 mg 08/04/17 11:15 08/05/17 09:30 Claritin - PO 10 mg DAILY CHUCHO Administration Senna 1 tab 08/05/17 10:00 08/05/17 09:30 Senna - PO 1 tab BID CHU[place] Administration Sodium Chloride 2 spray 08/04/17 11:01 08/04/17 12:05 [place] Nasal [place] - NS 2 spray TID PRN Administration NASAL CONGESTION await w/u give venofer ( low iron sat) for Fe def c/w Dex 2/4 doses for likely ITP flow negative CT findings noted-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
[2017-08-07] MEDS ORDERED: PT OWN MED DRAWER 7, Y5N ONE (20:42)
[2017-08-08 00:10] LABS: HEP A AB, IGM Negative (Negative)
[2017-08-08 07:46] LABS: BASO % 0.1 % (0-2.0); HEMATOCRIT 29.6 % (32.4-45.2); HEMOGLOBIN 9.2 GM/dL (10.7-15.3); LYMPH % 10.5 % (8-40); MCH 20.6 pg (25.7-33.7); MEAN CELL VOLUME 66.5 fl (80-96); MEAN PLT VOLUME 10.3 fl (7.5-11.1); MONO % 2.3 % (3.8-10.2); NEUT % 87.1 % (42.8-82.8); PLATELET COUNT 43 K/MM3 (134-434); RBC 4.45 M/mm3 (3.60-5.2); RDW 19.2 % (11.6-15.6); WHITE BLOOD COUNT 18.8 K/mm3 (4.0-10.0)
[2017-08-08 08:09] LABS: ALBUMIN 3.4 g/dl (3.4-5.0); ALK PHOS 61 U/L (45-117); ANION GAP 7 (8-16); BILIRUBIN,TOTAL 0.1 mg/dL (0.2-1.0); BLOOD UREA NITROGEN 14 mg/dL (7-18); CALCIUM 8.7 mg/dL (8.5-10.1); CHLORIDE 112 mmol/L (98-107); CO2 23 mmol/L (21-32); CREATININE 0.7 mg/dL (0.55-1.02); GLUCOSE,RANDOM 122 mg/dL (74-106); POTASSIUM 3.9 mmol/L (3.5-5.1); SGOT/AST 12 U/L (15-37); SGPT/ALT 37 U/L (12-78); SODIUM 142 mmol/L (136-145); TOT PROT 7.7 g/dl (6.4-8.2)
[2017-08-08] MEDS ORDERED: PT OWN MED DRAWER 7, Y5N ONE (09:12)
[2017-08-08] MEDS: LORATADINE 10 MG TABLET PO SCH (09:28)
[2017-08-08] MEDS: SENNOSIDES 8.6MG TABLET (FP) PO SCH (09:28)
[2017-08-08] MEDS: PANTOPRAZOLE 40 MG TABLET (FP) PO SCH (09:28)
[2017-08-08] MEDS: FLUTICASONE PROP 0.05% 16 GM NASAL SPRAY NS SCH (09:29)
[2017-08-08] MEDS: SODIUM CHLORIDE NASAL SPRAY 44 ML BOTTLE NS PRN (09:30)
--- NOTE | 2017-08-08 11:41 | DS ---
Physical Examination Vital Signs: Vital Signs Temperature 98.2 F 08/08/17 07:11 Pulse Rate 76 08/08/17 07:11 Respiratory Rate 20 08/08/17 07:11 Blood Pressure 111/69 08/08/17 07:11 O2 Sat by Pulse Oximetry (%) 97 08/07/17 21:00 Constitutional: Yes: Well Nourished, No Distress, Calm Cardiovascular: Yes: Regular Rate and Rhythm Respiratory: Yes: Regular Gastrointestinal: Yes: Normal Bowel Sounds, Soft Musculoskeletal: Yes: WNL Extremities: Yes: WNL Neurological: Yes: Alert, Oriented Psychiatric: Yes: Alert, Oriented Labs: CBC, BMP 08/08/17 06:30 08/08/17 06:30 Discharge Summary Reason For Visit: THROMBOCYTOPENIA Current Active Problems Anemia (Acute) Thrombocytopenia (Acute) Weakness (Acute) Hospital Course: This is a 41 year old female with a past medical history of PCOS who presented to the ED with thrombocytopenia. She was sent by her PCP for a platelet count in 30s. She recently went to him becuase she wasn't feeling well (URI/cough/ allergy symptoms) after being treated by urgent care 3 weeks ago for the same. She was started on prednisone and antibiotics by urgent care but reports they didn't help. She then went to her PCP for follow up. He started her on amoxicillin and repeated lab work as her platelet count was low on her annual physical in May. He referred her to the ED when her platelet count was noted low. 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 She had a uterine biopsy but has not received the results yet. She was found to have ovarian cysts and started on metformin. She also reports headaches recently. Of note, she reports her son was recently diagnosed with lupus after being found to have low platelet count on routine labs. Condition: Stable - Instructions Diet, Activity, Other Instructions: -Take Dexamethasone 40 mg for 2 more days Referrals: Tash River MD [Primary Care Provider] - 1 Week (get ultrasound of the uterus to evlaluate right adenxeal soft tissue density) Lila Garner MD [Staff Physician] - 1 Week (on Sunday08/13/17) Disposition: HOME - Home Medications Comprehensive Discharge Medication List: Ambulatory Orders Metformin HCl [Glucophage] 500 mg PO DAILY 08/03/17 Fluticasone Prop 0.05% Nasal [Flonase -] 1 spray NS BID spray 08/06/17 Loratadine [Claritin -] 10 mg PO DAILY tablet 08/06/17 Sennosides [Senna -] 1 tab PO BID tablet 08/06/17 Sodium Chloride Nasal [place] [[place] Nasal [place] -] 2 spray NS TID PRN spray 08/06/17 Acetaminophen [Tylenol .Regular Strength -] 650 mg PO Q6H PRN tablet 08/07/17 Dexamethasone [Decadron -] 40 mg PO DAILY@1800 #40 tablet 08/07/17 Pantoprazole Sodium [Protonix -] 40 mg PO DAILY #10 tablet.ec 08/07/17
[2017-08-08 15:27] VITALS: BP 132/80; PULSE 73; TEMP 98.2
[2017-08-08] MEDS: DEXAMETHASONE 4 MG TABLET (FP) PO SCH (17:11)
[2017-08-10 14:17] LABS: APTT 27.1 sec (.); B2-GLYCOPROTEIN IGA <10 SAU (.); B2-GLYCOPROTEIN IGG <10 SGU (.); B2-GLYCOPROTEIN IGM <10 SMU (.); CARDIOLIPIN AB IGA <10 APL (.); DRVVT SCREEN SECONDS 42.4 sec (.); HEXAGONAL PHOSPHOLIPID NEUTRAL 21 sec (.)
== END 2017-08-08 15:52 | disposition home or self-care (01) | DRG 813 ==
LOC: JER 18:20 → JERBED 21:01 → J8W 23:08 → OBSVTOIN 08-07 15:56
PROVIDERS: ADMIT Internal Medicine; ATTEND Family Medicine
DX: D69.6 Thrombocytopenia, unspecified (principal); D69.3 Immune thrombocytopenic purpura; E28.2 Polycystic ovarian syndrome; Z98.84 Bariatric surgery status; D64.9 Anemia, unspecified; J02.9 Acute pharyngitis, unspecified; R53.1 Weakness; F41.9 Anxiety disorder, unspecified; R23.3 Spontaneous ecchymoses; D50.9 Iron deficiency anemia, unspecified
CPT/HCPCS: 36415; 70450-TC; 71046-TC-FY; 71260-TC; 74178-TC; 80048; 80053; 81003; 81015; 82607; 82728; 82746; 82784; 83010; 83540; 83550; 83615; 83735; 84100; 84155; 84165; 84443; 84550; 84703; 85025; 85027; 85032; 85044; 85597; 85610; 85730; 86038; 86146; 86147; 86334; 86708; 87040; 88300-TC; 94640; 99285-25; G0378; J1756; J7620

== ENCOUNTER 2017-08-17 07:57 | Day surgery (SDC) | payer OTHER ==
[2017-08-17] MEDS ORDERED: IRON SUCROSE INJECTION 200 MG in SODIUM CHLORIDE 100 ML IVPB ONE (12:00)
[2017-08-17 17:01] VITALS: BP 112/76; PULSE 62; TEMP 98.1
== END 2017-08-17 13:50 | disposition home or self-care (01) ==
LOC: JONCNONCHE 07:57 → J7W 12:18 → JONCNONCHE 13:50
PROVIDERS: ATTEND Internal Medicine Hematology & Oncology
PROC: 3E033GC Introduction of Other Therapeutic Substance into Peripheral Vein, Percutaneous Approach (ICD-10-PCS; principal; 2017-08-17)
DX: D50.9 Iron deficiency anemia, unspecified (principal)
CPT/HCPCS: 96365; J1756

== ENCOUNTER 2017-08-24 07:13 | Day surgery (SDC) | payer OTHER ==
[2017-08-24] MEDS ORDERED: IRON SUCROSE INJECTION 200 MG in SODIUM CHLORIDE 100 ML IVPB ONE (10:00)
[2017-08-24 16:12] VITALS: TEMP 98.2
[2017-08-24 16:14] VITALS: BP 112/77; PULSE 76
== END 2017-08-24 12:45 | disposition home or self-care (01) ==
LOC: JONCNONCHE 07:13 → J7W 10:51 → JONCNONCHE 12:45
PROVIDERS: ATTEND Internal Medicine Hematology & Oncology
PROC: 3E033GC Introduction of Other Therapeutic Substance into Peripheral Vein, Percutaneous Approach (ICD-10-PCS; principal; 2017-08-24)
DX: D50.9 Iron deficiency anemia, unspecified (principal)
CPT/HCPCS: 96365; J1756

== ENCOUNTER 2017-09-07 07:33 | Day surgery (SDC) | payer OTHER ==
[2017-09-07] MEDS ORDERED: IRON SUCROSE INJECTION 200 MG in SODIUM CHLORIDE 100 ML IVPB ONE (11:30)
[2017-09-07 15:20] VITALS: TEMP 98.1
[2017-09-07 15:23] VITALS: BP 129/96; PULSE 76
== END 2017-09-07 14:15 | disposition home or self-care (01) ==
LOC: JONCNONCHE 07:33 → J7W 11:12 → JONCNONCHE 14:15
PROVIDERS: ATTEND Internal Medicine Hematology & Oncology
PROC: 3E033GC Introduction of Other Therapeutic Substance into Peripheral Vein, Percutaneous Approach (ICD-10-PCS; principal; 2017-09-07)
DX: D50.9 Iron deficiency anemia, unspecified (principal)
CPT/HCPCS: 96365; J1756

== ENCOUNTER → 2018-06-07 | Day surgery (SDC) | payer OTHER ==
[~2018-06-07] MED LIST: IRON SUCROSE INJECTION 200 MG in SODIUM CHLORIDE 100 ML IVPB ONE
[2018-06-07 10:17] LABS: HEMOGLOBIN 12.2 GM/dL (10.7-15.3); MCH 25.4 pg (25.7-33.7); MEAN CELL VOLUME 79.3 fl (80-96); RDW 14.7 % (11.6-15.6); WHITE BLOOD COUNT 6.6 K/mm3 (4.0-10.0)
[2018-06-07 10:27] LABS: PLATELET COUNT 44 K/MM3 (134-434)
== END | disposition home or self-care (01) ==
LOC: JONCNONCHE 07:08
PROVIDERS: ATTEND Internal Medicine Hematology & Oncology
DX: Z53.8 Procedure and treatment not carried out for other reasons (principal)
CPT/HCPCS: 36415; 85027; 85032

== ENCOUNTER 2019-08-15 06:42 | Day surgery (SDC) | payer OTHER ==
[2019-08-15 10:15] LABS: BASO % 0.6 % (0-2.0); EOS % 1.2 % (0-4.5); HEMATOCRIT 38.6 % (32.4-45.2); HEMOGLOBIN 12.2 GM/dL (10.7-15.3); LYMPH % 27.2 % (8-40); MCH 25.1 pg (25.7-33.7); MCHC 31.6 g/dl (32.0-36.0); MEAN CELL VOLUME 79.5 fl (80-96); MEAN PLT VOLUME 8.6 fl (7.5-11.1); MONO % 7.9 % (3.8-10.2); NEUT % 63.1 % (42.8-82.8); PLATELET COUNT 150 K/MM3 (134-434); RBC 4.86 M/mm3 (3.60-5.2); RDW 15.4 % (11.6-15.6)
[2019-08-15 10:41] LABS: ALBUMIN 3.5 g/dl (3.4-5.0); BILIRUBIN,TOTAL 0.2 mg/dL (0.2-1); BLOOD UREA NITROGEN 15.4 mg/dL (7-18); CREATININE 0.8 mg/dL (0.55-1.3); POTASSIUM 3.5 mmol/L (3.5-5.1)
[2019-08-15] MEDS ORDERED: ACETAMINOPHEN 325 MG TABLET (FP) PO ONE (11:00)
[2019-08-15] MEDS ORDERED: DEXAMETHASONE INJECTION 20 MG, DIPHENHYDRAMINE 50 MG in SODIUM CHLORIDE 100 ML IVPB ONE (11:00)
[2019-08-15] MEDS ORDERED: SODIUM CHLORIDE IVPB ONE (11:30)
[2019-08-15] MEDS ORDERED: RITUXIMAB IVPB ONE (11:30)
[2019-08-15 15:56] VITALS: BP 108/64; PULSE 92; TEMP 98.3
== END 2019-08-15 15:59 | disposition home or self-care (01) ==
LOC: JONCCHEMO 06:42
PROVIDERS: ATTEND Internal Medicine Hematology & Oncology
DX: M32.9 Systemic lupus erythematosus, unspecified (principal); D50.9 Iron deficiency anemia, unspecified; D69.6 Thrombocytopenia, unspecified
CPT/HCPCS: 36415; 80053; 85025; 85032; 96367; 96413; 96415; J1100; J9312

== ENCOUNTER 2019-08-21 07:22 | Day surgery (SDC) | payer OTHER ==
[2019-08-21] MEDS ORDERED: ACETAMINOPHEN 325 MG TABLET (FP) PO ONE (10:00)
[2019-08-21] MEDS ORDERED: DEXAMETHASONE SODIUM PHOSPHATE 20 MG, DIPHENHYDRAMINE 50 MG in SODIUM CHLORIDE 100 ML IVPB ONE (10:00)
[2019-08-21 10:07] LABS: BASO % 0.4 % (0-2.0); EOS % 1.5 % (0-4.5); HEMOGLOBIN 12.2 GM/dL (10.7-15.3); LYMPH % 22.1 % (8-40); MCH 25.9 pg (25.7-33.7); MCHC 32.2 g/dl (32.0-36.0); MEAN CELL VOLUME 80.5 fl (80-96); MEAN PLT VOLUME 8.6 fl (7.5-11.1); MONO % 7.5 % (3.8-10.2); NEUT % 68.5 % (42.8-82.8); PLATELET COUNT 180 K/MM3 (134-434); RBC 4.72 M/mm3 (3.60-5.2); WHITE BLOOD COUNT 5.7 K/mm3 (4.0-10.0)
[2019-08-21] MEDS ORDERED: SODIUM CHLORIDE IVPB ONE (10:30)
[2019-08-21] MEDS ORDERED: RITUXIMAB IVPB ONE (10:30)
[2019-08-21 11:04] LABS: ALBUMIN 3.3 g/dl (3.4-5.0); BILIRUBIN,DIRECT 0.1 mg/dL (0.0-0.2); BILIRUBIN,TOTAL 0.3 mg/dL (0.2-1); BLOOD UREA NITROGEN 12.3 mg/dL (7-18); CALCIUM 8.8 mg/dL (8.5-10.1); CREATININE 0.9 mg/dL (0.55-1.3); MAGNESIUM 2.1 mg/dL (1.8-2.4); POTASSIUM 3.8 mmol/L (3.5-5.1); TOT PROT 6.8 g/dl (6.4-8.2)
[2019-08-21 14:48] VITALS: TEMP 98.2
[2019-08-21 15:45] VITALS: BP 120/86; PULSE 88
== END 2019-08-21 15:46 | disposition home or self-care (01) ==
LOC: JONCCHEMO 07:22
PROVIDERS: ATTEND Internal Medicine Hematology & Oncology
DX: M32.9 Systemic lupus erythematosus, unspecified (principal); D50.9 Iron deficiency anemia, unspecified; D69.6 Thrombocytopenia, unspecified
CPT/HCPCS: 36415; 80048; 80076; 83735; 85025; 85032; 96367; 96413; 96415; J9312

== ENCOUNTER 2019-08-29 07:18 | Day surgery (SDC) | payer OTHER ==
[2019-08-29] MEDS ORDERED: ACETAMINOPHEN 325 MG TABLET (FP) PO ONE (10:00)
[2019-08-29] MEDS ORDERED: DEXAMETHASONE INJECTION 20 MG, DIPHENHYDRAMINE 50 MG in SODIUM CHLORIDE 100 ML IVPB ONE (10:00)
[2019-08-29] MEDS ORDERED: SODIUM CHLORIDE IVPB ONE (10:30)
[2019-08-29] MEDS ORDERED: RITUXIMAB IVPB ONE (10:30)
[2019-08-29 10:32] LABS: BASO % 0.3 % (0-2.0); EOS % 1.7 % (0-4.5); HEMATOCRIT 36.6 % (32.4-45.2); HEMOGLOBIN 11.7 GM/dL (10.7-15.3); LYMPH % 17.5 % (8-40); MCH 25.6 pg (25.7-33.7); MCHC 31.9 g/dl (32.0-36.0); MEAN PLT VOLUME 8.8 fl (7.5-11.1); MONO % 8.7 % (3.8-10.2); NEUT % 71.8 % (42.8-82.8); PLATELET COUNT 201 K/MM3 (134-434); RBC 4.58 M/mm3 (3.60-5.2); RDW 15.3 % (11.6-15.6); WHITE BLOOD COUNT 6.4 K/mm3 (4.0-10.0)
[2019-08-29 11:10] LABS: ALBUMIN 2.4 g/dl (3.4-5.0); BILIRUBIN,TOTAL 0.2 mg/dL (0.2-1); BLOOD UREA NITROGEN 9.6 mg/dL (7-18); CREATININE 0.6 mg/dL (0.55-1.3); POTASSIUM 3.3 mmol/L (3.5-5.1); TOT PROT 5.1 g/dl (6.4-8.2)
[2019-08-29] MEDS ORDERED: POTASSIUM CHLORIDE TABS 20 MEQ TABLET.ER (FP) PO ONE (15:01)
[2019-08-29 15:44] VITALS: TEMP 98.6
[2019-08-29 16:38] VITALS: BP 133/82; PULSE 92
== END 2019-08-29 15:45 | disposition home or self-care (01) ==
LOC: JONCCHEMO 07:18
PROVIDERS: ATTEND Internal Medicine Hematology & Oncology
DX: M32.9 Systemic lupus erythematosus, unspecified (principal); D50.9 Iron deficiency anemia, unspecified; D69.6 Thrombocytopenia, unspecified
CPT/HCPCS: 36415; 80053; 85025; 85032; 87517; 96367; 96413; 96415; J1100; J9312

== ENCOUNTER 2020-06-21 17:34 | Emergency (ER) | payer OTHER ==
[2020-06-21 17:54] VITALS: BP 137/87; PULSE 109; TEMP 98.2; BMI 42.0
[2020-06-21] MEDS ORDERED: ACETAMINOPHEN 500 MG TABLET (FP) PO ONE (18:47)
[2020-06-21] MEDS ORDERED: DIPHTH,PERTUSS(ACELL),TET 0.5 ML DISP.SYRIN IM ONE ×2 (18:47→18:50)
[2020-06-21] MEDS ORDERED: ACETAMINOPHEN 500 MG TABLET (FP) ONE (18:50)
== END 2020-06-21 21:07 | disposition home or self-care (01) ==
LOC: JER 17:34 → JERFT 17:34
PROC: 3E0234Z Introduction of Serum, Toxoid and Vaccine into Muscle, Percutaneous Approach (ICD-10-PCS; principal; 2020-06-21)
DX: H11.32 Conjunctival hemorrhage, left eye (principal); S09.93XA Unspecified injury of face, initial encounter; S09.90XA Unspecified injury of head, initial encounter; M25.571 Pain in right ankle and joints of right foot
CPT/HCPCS: 70450-TC; 70486-TC; 72125-TC; 73610-TC-RT-FY; 73630-TC-RT-FY; 90715; 99285-25

== ENCOUNTER 2021-07-21 14:36 | Inpatient (IN) | payer OTHER ==
[2021-07-21] MEDS ORDERED: SODIUM CHLORIDE 0.9% 500 ML INFUS.BAG IV ONE (18:06)
[2021-07-21] MEDS ORDERED: ONDANSETRON 4 MG/2 ML VIAL IVPUSH ONE (18:06)
[2021-07-21] MEDS ORDERED: PANTOPRAZOLE SODIUM 40 MG VIAL IVPUSH ONE (18:07)
[2021-07-21] MEDS ORDERED: MAG HYDROX/AL HYDROX/SIMETH -MYLANTA- ORAL SUSPENSION PO ONE (18:07)
[2021-07-21] MEDS ORDERED: MAG HYDROX/AL HYDROX/SIMETH 30 ML UNIT-DOSE CUP ONE (18:51)
[2021-07-21] MEDS ORDERED: ONDANSETRON 4 MG/2 ML VIAL ONE (18:52)
[2021-07-21] MEDS ORDERED: PANTOPRAZOLE SODIUM 40 MG VIAL ONE (18:52)
[2021-07-21 19:39] LABS: BASO % 0.5 % (0-2.0); EOS % 0.7 % (0-4.5); HEMATOCRIT 40.8 % (32.4-45.2); HEMOGLOBIN 13.4 GM/dL (10.7-15.3); LYMPH % 23.6 % (8-40); MCH 26.7 pg (25.7-33.7); MCHC 32.9 g/dl (32.0-36.0); MEAN CELL VOLUME 81.1 fl (80-96); MEAN PLT VOLUME 8.3 fl (7.5-11.1); MONO % 8.5 % (3.8-10.2); NEUT % 66.7 % (42.8-82.8); PLATELET COUNT 242 10^3/uL (134-434); RBC 5.03 M/mm3 (3.60-5.2); RDW 14.4 % (11.6-15.6); WHITE BLOOD COUNT 6.5 K/mm3 (4.0-10.0)
[2021-07-21 19:54] LABS: CALCIUM 9.1 mg/dL (8.5-10.1)
[2021-07-21 19:55] LABS: BLOOD UREA NITROGEN 12.1 mg/dL (7-18)
[2021-07-21 19:58] LABS: CREATININE 0.7 mg/dL (0.55-1.3)
[2021-07-21 19:59] LABS: BILIRUBIN,TOTAL 1.2 mg/dL (0.2-1); TOT PROT 7.7 g/dl (6.4-8.2)
[2021-07-21] MEDS ORDERED: morphine CARPU-JECT 4 MG/1 ML DISP.SYRIN IVPUSH ONE (21:04)
[2021-07-21] MEDS ORDERED: morphine SULFATE 4 MG/ML VIAL ONE (21:13)
[2021-07-22] MEDS ORDERED: SODIUM CHLORIDE 1,000 ML IV STA ×2 (01:20→05:57)
[2021-07-22] MEDS ORDERED: POLYETHYLENE GLYCOL (HEALTHYLAX) 3350 17 GM PACKET PO PRN (02:19)
[2021-07-22 04:30] LABS: ALBUMIN 3.7 g/dl (3.4-5.0)
[2021-07-22 04:31] LABS: INR 1.03 (0.83-1.09); PROTHROMBIN TIME (PATIENT) 11.8 SEC (9.7-13.0)
[2021-07-22 04:32] LABS: BILIRUBIN,DIRECT 0.6 mg/dL (0.0-0.2)
[2021-07-22 04:33] LABS: ACTIVATED PTT 35.6 SECONDS (25.2-36.5)
[2021-07-22 04:35] LABS: TOT PROT 6.9 g/dl (6.4-8.2)
[2021-07-22] MEDS ORDERED: SODIUM CHLORIDE 1,000 ML IV SCH (04:45)
[2021-07-22 05:25] VITALS: BMI 31.5
[2021-07-22] MEDS ORDERED: LIDOCAINE 5% TOPICAL PATCH TP PRN (07:37)
[2021-07-22] MEDS ORDERED: FLU VACC QS2021-22(6MOS UP)/PF 60 MCG/0.5 ML SYRINGE IM ONE (10:00)
[2021-07-22 10:20] LABS: PHENCYCLIDINE,URINE NEGATIVE (NEGATIVE); URINE BENZODIAZEPINES NEGATIVE (NEGATIVE)
[2021-07-22 10:21] LABS: COCAINE, UR NEGATIVE (NEGATIVE); URINE BARBITURATES NEGATIVE (NEGATIVE)
[2021-07-22 10:25] LABS: METHADONE, UR NEGATIVE (NEGATIVE); OPIATES, URI POSITIVE (NEGATIVE); URINE AMPHETAMINES NEGATIVE (NEGATIVE)
[2021-07-22] MEDS ORDERED: PIPERACILLIN/TAZOBACTAM 3.375 GM VIAL IVPB ONE ×2 (10:32→17:00)
[2021-07-22] MEDS ORDERED: DEXTROSE 5%-WATER - 50 ML IVPB ONE ×2 (10:32→17:00)
[2021-07-22] MEDS: PIPERACILLIN/TAZOB 3.375 GM 3.375 GM in DEXTROSE 5%-WATER - 50 ML IVPB SCH ×2 (11:07→17:20)
[2021-07-22] MEDS ORDERED: INDOMETHACIN 50 MG RECTAL SUPPOSITORY PR ONE (13:00)
[2021-07-22] MEDS ORDERED: FENTANYL CITRATE/PF 50 MCG/ML VIAL ONE (13:49)
[2021-07-22 15:23] VITALS: TEMP 97.5
[2021-07-22] MEDS ORDERED: DEXTROSE 5%-LACTATED RINGERS 1,000 ML IV SCH (15:45)
[2021-07-22 16:15] VITALS: BP 116/78; PULSE 66
[2021-07-22 18:32] LABS: BASO % 0.2 % (0-2.0); EOS % 0.5 % (0-4.5); HEMATOCRIT 37.9 % (32.4-45.2); HEMOGLOBIN 12.4 GM/dL (10.7-15.3); LYMPH % 11.2 % (8-40); MCH 26.6 pg (25.7-33.7); MCHC 32.6 g/dl (32.0-36.0); MEAN CELL VOLUME 81.6 fl (80-96); MEAN PLT VOLUME 8.3 fl (7.5-11.1); MONO % 4.4 % (3.8-10.2); NEUT % 83.7 % (42.8-82.8); PLATELET COUNT 217 10^3/uL (134-434); RBC 4.65 M/mm3 (3.60-5.2); RDW 14.3 % (11.6-15.6); WHITE BLOOD COUNT 10.6 K/mm3 (4.0-10.0)
[2021-07-22 18:40] LABS: INR 1.12 (0.83-1.09); PROTHROMBIN TIME (PATIENT) 12.9 SEC (9.7-13.0)
[2021-07-22 18:56] LABS: BLOOD UREA NITROGEN 7.5 mg/dL (7-18); CALCIUM 8.7 mg/dL (8.5-10.1)
[2021-07-22 18:57] LABS: ALBUMIN 3.4 g/dl (3.4-5.0)
[2021-07-22 18:58] LABS: BILIRUBIN,DIRECT 0.6 mg/dL (0.0-0.2)
[2021-07-22 19:00] LABS: BILIRUBIN,TOTAL 0.9 mg/dL (0.2-1); CREATININE 0.5 mg/dL (0.55-1.3); TOT PROT 6.6 g/dl (6.4-8.2)
[2021-07-22] MEDS ORDERED: LIDOCAINE PATCH REMOVAL MC SCH (22:00)
[2021-07-23] MEDS ORDERED: PIPERACILLIN/TAZOB 3.375 GM 3.375 GM in DEXTROSE 5%-WATER - 50 ML IVPB SCH (18:00)
== END 2021-07-22 19:45 | disposition short-term general hospital (02) | DRG 445 ==
LOC: JER 14:36 → JERBED 07-22 00:54 → J6S 07-22 04:57
PROVIDERS: ADMIT Internal Medicine; ATTEND Family Medicine
PROC: 0FJB8ZZ Inspection of Hepatobiliary Duct, Via Natural or Artificial Opening Endoscopic (ICD-10-PCS; principal; 2021-07-22 12:30)
DX: K80.50 Calculus of bile duct without cholangitis or cholecystitis without obstruction (principal); K56.7 Ileus, unspecified; D69.3 Immune thrombocytopenic purpura; E28.2 Polycystic ovarian syndrome; D64.9 Anemia, unspecified; R79.89 Other specified abnormal findings of blood chemistry; K59.00 Constipation, unspecified; K57.90 Diverticulosis of intestine, part unspecified, without perforation or abscess without bleeding; D50.9 Iron deficiency anemia, unspecified; E11.9 Type 2 diabetes mellitus without complications; K21.9 Gastro-esophageal reflux disease without esophagitis; R76.8 Other specified abnormal immunological findings in serum; Z98.84 Bariatric surgery status
CPT/HCPCS: 0241U-QW; 36415; 74176-TC; 74181-TC; 76705-TC; 80048; 80053; 80076; 80307; 83690; 84484; 84703; 85025; 85610; 85730; 86704; 86705; 86803; 87340; 87517; 90686; 93005; 93010; 99285-25; G0008; Q9967

== ENCOUNTER 2022-09-27 19:28 | Emergency (ER) | payer OTHER ==
[2022-09-27 19:40] VITALS: BP 133/87; PULSE 79; RESP 18; TEMP 98.6; BMI 32.2
== END 2022-09-27 22:19 | disposition home or self-care (01) ==
LOC: JERFT 19:28
DX: M25.531 Pain in right wrist (principal); S39.92XA Unspecified injury of lower back, initial encounter; W01.198A Fall on same level from slipping, tripping and stumbling with subsequent striking against other object, initial encounter; Y93.01 Activity, walking, marching and hiking
CPT/HCPCS: 72100-TC-FY; 73110-TC-RT-FY; 73130-TC-RT-FY; 99284-25

== ENCOUNTER 2023-05-08 13:38 | Emergency (ER) | payer OTHER ==
[2023-05-08 13:44] VITALS: PULSE 73; TEMP 97.6; BMI 33.2
[2023-05-08] MEDS ORDERED: IBUPROFEN 400 MG TABLET (FP) PO ONE (15:44)
[2023-05-08] MEDS: IBUPROFEN 400 MG TABLET (FP) PO ONE (15:47)
[2023-05-08] MEDS ORDERED: METOCLOPRAMIDE HCL INJECTION 10 MG/2 ML VIAL ONE (17:01)
[2023-05-08] MEDS ORDERED: ACETAMINOPHEN INJECTION 100 ML IVPB ONE (17:03)
[2023-05-08 17:10] LABS: BASO % 0.4 % (0-2.0); EOS % 0.3 % (0-4.5); HEMATOCRIT 37.9 % (32.4-45.2); HEMOGLOBIN 12.4 GM/dL (10.7-15.3); LYMPH % 36.2 % (8-40); MCH 26.1 pg (25.7-33.7); MCHC 32.7 g/dl (32.0-36.0); MEAN CELL VOLUME 79.9 fl (80-96); MEAN PLT VOLUME 7.7 fl (7.5-11.1); MONO % 8.8 % (3.8-10.2); NEUT % 54.3 % (42.8-82.8); PLATELET COUNT 229 10^3/uL (134-434); RBC 4.75 M/mm3 (3.60-5.2); RDW 14.3 % (11.6-15.6); WHITE BLOOD COUNT 7.1 K/mm3 (4.0-10.0)
[2023-05-08] MEDS: ACETAMINOPHEN 1000 MG/100 ML BAG IVPB ONE (17:10)
[2023-05-08] MEDS: METOCLOPRAMIDE HCL INJECTION 10 MG/2 ML VIAL IVPB ONE (17:10)
[2023-05-08 17:32] LABS: POTASSIUM 5.4 mmol/L (3.5-5.1)
[2023-05-08 17:35] LABS: ALBUMIN 3.4 g/dl (3.4-5.0); BLOOD UREA NITROGEN 16.8 mg/dL (7-18); CALCIUM 8.7 mg/dL (8.5-10.1)
[2023-05-08] MEDS: CAFFEINE CITRATE 60 MG/3 ML VIAL (ORAL USE ONLY) PO ONE (17:35)
[2023-05-08 17:38] LABS: CREATININE 0.9 mg/dL (0.55-1.3)
[2023-05-08 17:40] LABS: BILIRUBIN,TOTAL 0.3 mg/dL (0.2-1); TOT PROT 6.8 g/dl (6.4-8.2)
[2023-05-08 18:04] VITALS: BP 109/86; RESP 20
== END 2023-05-08 19:06 | disposition home or self-care (01) ==
LOC: JER 13:38
PROC: 3E030NZ Introduction of Analgesics, Hypnotics, Sedatives into Peripheral Vein, Open Approach (ICD-10-PCS; principal; 2023-05-08)
PROC: 3E030GC Introduction of Other Therapeutic Substance into Peripheral Vein, Open Approach (ICD-10-PCS; 2023-05-08)
DX: M54.2 Cervicalgia (principal); R51.9 Headache, unspecified; M54.50 Low back pain, unspecified; G89.29 Other chronic pain
CPT/HCPCS: 36415; 80053; 85025; 90675; 99284-25; J0131

== ENCOUNTER 2023-05-10 09:04 | Day surgery (SDC) | payer OTHER ==
[2023-05-10 09:11] VITALS: BMI 33.2
[2023-05-10] MEDS ORDERED: ACETAMINOPHEN INJECTION 100 ML IVPB ONE (12:27)
[2023-05-10] MEDS: ACETAMINOPHEN 1000 MG/100 ML BAG IVPB ONE (12:38)
[2023-05-10] MEDS: SODIUM CHLORIDE 0.9% 1000 ML INFUS.BAG IV ONE (12:38)
[2023-05-10] MEDS ORDERED: ceFAZolin SODIUM 1 GM VIAL ONE (12:45)
[2023-05-10] MEDS: CEFAZOLIN 1 GM in DEXTROSE 5%-WATER - 50 ML IVPB ONE (13:07)
[2023-05-10 13:19] LABS: BASO % 0.3 % (0-2.0); EOS % 0.3 % (0-4.5); HEMATOCRIT 41.6 % (32.4-45.2); HEMOGLOBIN 13.2 GM/dL (10.7-15.3); LYMPH % 30.1 % (8-40); MCH 25.7 pg (25.7-33.7); MCHC 31.8 g/dl (32.0-36.0); MEAN CELL VOLUME 80.7 fl (80-96); MEAN PLT VOLUME 7.9 fl (7.5-11.1); MONO % 9.7 % (3.8-10.2); NEUT % 59.6 % (42.8-82.8); PLATELET COUNT 223 10^3/uL (134-434); RBC 5.15 M/mm3 (3.60-5.2); RDW 14.6 % (11.6-15.6); WHITE BLOOD COUNT 5.4 K/mm3 (4.0-10.0)
[2023-05-10 13:41] LABS: CALCIUM 9.5 mg/dL (8.5-10.1)
[2023-05-10 13:42] LABS: ALBUMIN 3.7 g/dl (3.4-5.0); BLOOD UREA NITROGEN 12.8 mg/dL (7-18)
[2023-05-10 13:45] LABS: CREATININE 0.6 mg/dL (0.55-1.3)
[2023-05-10 13:46] LABS: BILIRUBIN,TOTAL 0.4 mg/dL (0.2-1); TOT PROT 7.2 g/dl (6.4-8.2)
[2023-05-10] MEDS ORDERED: FENTANYL CITRATE/PF 50 MCG/ML VIAL ONE (18:12)
[2023-05-10] MEDS ORDERED: MIDAZOLAM HCL 2 MG/2 ML SINGLE DOSE VIAL ONE (18:12)
[2023-05-10] MEDS ORDERED: SEVOFLURANE 250 ML BTL ONE (18:14)
[2023-05-10] MEDS ORDERED: LIDOCAINE HCL/PF 1% SDV 5ML VIAL ONE (18:20)
[2023-05-10] MEDS: LIDOCAINE HCL 1% PRESERVATIVE FREE - 30ML VIAL IJ ONE (18:51)
[2023-05-10] MEDS ORDERED: KETOROLAC TROMETHAMINE 30 MG/1 ML VIAL ONE (19:05)
[2023-05-10 21:45] VITALS: BP 127/94; PULSE 66; RESP 20; TEMP 97.8
== END 2023-05-10 21:40 | disposition home or self-care (01) ==
LOC: JER 09:04 → JASU-SURG 11:59
PROVIDERS: ATTEND Physical Medicine & Rehabilitation
PROC: 3E0R3GC Introduction of Other Therapeutic Substance into Spinal Canal, Percutaneous Approach (ICD-10-PCS; principal; 2023-05-10 18:00)
DX: G97.1 Other reaction to spinal and lumbar puncture (principal)
CPT/HCPCS: 36415; 70450-TC; 76000-TC-FY; 80053; 85025; 99285-25; J0131

== ENCOUNTER 2023-05-17 10:53 | Emergency (ER) | payer OTHER ==
[2023-05-17 11:01] VITALS: BMI 32.4
[2023-05-17] MEDS ORDERED: ACETAMINOPHEN 325 MG TABLET (FP) ONE (11:46)
[2023-05-17] MEDS: ACETAMINOPHEN 325 MG TABLET (FP) PO ONE (12:09)
[2023-05-17 12:21] LABS: BASO % 0.3 % (0-2.0); EOS % 0.1 % (0-4.5); HEMATOCRIT 39.3 % (32.4-45.2); HEMOGLOBIN 12.7 GM/dL (10.7-15.3); LYMPH % 32.1 % (8-40); MCHC 32.3 g/dl (32.0-36.0); MEAN CELL VOLUME 80.6 fl (80-96); MONO % 9.3 % (3.8-10.2); NEUT % 58.2 % (42.8-82.8); PLATELET COUNT 195 10^3/uL (134-434); RBC 4.87 M/mm3 (3.60-5.2); RDW 14.2 % (11.6-15.6); WHITE BLOOD COUNT 4.6 K/mm3 (4.0-10.0)
[2023-05-17 12:29] LABS: URINE APPEARANCE CLEAR; URINE BILIRUBIN NEGATIVE (NEGATIVE); URINE COLOR YELLOW; URINE GLUCOSE (UA) NEGATIVE (NEGATIVE); URINE KETONE NEGATIVE (NEGATIVE); URINE LEUK ESTERASE NEGATIVE (NEGATIVE); URINE NITRITE NEGATIVE (NEGATIVE); URINE PROTEIN TRACE (NEGATIVE); URINE UROBILINOGEN 0.2 mg/dL (0.2-1.0)
[2023-05-17 12:43] LABS: POTASSIUM 3.8 mmol/L (3.5-5.1)
[2023-05-17 12:44] LABS: CALCIUM 9.6 mg/dL (8.5-10.1)
[2023-05-17 12:45] LABS: ALBUMIN 3.8 g/dl (3.4-5.0); BLOOD UREA NITROGEN 14.7 mg/dL (7-18)
[2023-05-17 12:48] LABS: CREATININE 0.7 mg/dL (0.55-1.3)
[2023-05-17 12:50] LABS: BILIRUBIN,TOTAL 0.4 mg/dL (0.2-1); TOT PROT 7.5 g/dl (6.4-8.2)
[2023-05-17 13:12] LABS: ERYTHROCYTE SEDIMENTATION RATE 29 mm/hr (0-20)
[2023-05-17 14:14] VITALS: BP 102/78; PULSE 86; RESP 14; TEMP 98.1
== END 2023-05-17 14:15 | disposition home or self-care (01) ==
LOC: JER 10:53
DX: M54.9 Dorsalgia, unspecified (principal); R51.9 Headache, unspecified; R30.0 Dysuria; R68.83 Chills (without fever); Z20.822 Contact with and (suspected) exposure to COVID-19
CPT/HCPCS: 0241U-QW; 36415; 80053; 81003; 83605; 84703; 85025; 85651; 86140; 87040; 87086; 99283-25